=== PATIENT | female | born 1995 | race African-American/Black ===

== ENCOUNTER 2017-10-28 20:06 | Emergency (ER) | payer SELFPAY ==
[~2017-10-28] VITALS: Ht 160 cm; Wt 53.6 kg
[~2017-10-28 20:06] MED LIST: BENTYL 20MG20 MG/TAB PO; MIRENA52 MG IY
[2017-10-28 20:13] VITALS: BP 125/81; TEMP 97.3
[2017-10-28 21:02] LABS: STREP SCREEN NEGATIVE
[2017-10-28 21:03] LABS: INFLUENZA A POSITIVE; INFLUENZA B NEGATIVE
[2017-10-28 21:31] VITALS: PULSE 96
== END 2017-10-28 21:31 | disposition home or self-care (01) ==
LOC: COL.ER 20:06
PROVIDERS: Nurse Practitioner
DX: J09.X2 Influenza due to identified novel influenza A virus with other respiratory manifestations (principal)

== ENCOUNTER 2018-12-31 05:47 | Emergency (ER) | payer SELFPAY ==
[~2018-12-31] VITALS: Ht 165.1 cm; Wt 68.2 kg
[2018-12-31 05:47] VITALS: BP 114/81; TEMP 98.6
[2018-12-31] MEDS ORDERED: PREDNISONE20 MG PO (06:30)
[2018-12-31 06:43] VITALS: PULSE 88
== END 2018-12-31 06:44 | disposition home or self-care (01) ==
LOC: COL.ER 05:47
DX: J02.9 Acute pharyngitis, unspecified (principal)
CPT/HCPCS: J7512